=== PATIENT | male | born 1950 | race Caucasian/White ===

== ENCOUNTER 2017-09-12 08:13 | Day surgery (SDC) | payer MEDICARE, OTHER ==
[~2017-09-12] VITALS: Ht 180.3 cm; Wt 109.2 kg
[2017-09-12] VITALS (7 sets, daily range): BP systolic 104–142; BP diastolic 65–86; PULSE 80–101; RESP 16–20; TEMP 96.5–98.7; O2SAT 93–96
[2017-09-12] MEDS ORDERED: SODIUM CHLOR 0.9% 1000 ML IV SCH (09:00)
[2017-09-12] MEDS ORDERED: fentaNYL CITRATE 250 MCG/5 ML AMP ONE (09:52)
[2017-09-12] MEDS ORDERED: MIDAZOLAM HCL 2 MG/2 ML VIAL ONE (09:52)
--- NOTE | 2017-09-12 10:40 | PD.RAD ---
Post CT Procedure Prog Note Pre Procedure Diagnosis: (1) Liver masses Post Procedure Diagnosis: (1) Liver masses Procedure Date: Sep 12, 2017 Supervising Radiologist: Max Crespo Anesthesia: Local, Analgesia, Conscious Sedation Plan of Activity Patient to Unit: ROPU Patient Condition: Good See PACS Report for procedural detail/treatment Biopsy Imaging Guidance: CT Side: Right Biopsy Procedure: Liver Specimen: Core Biopsy (x 2) Max Crespo MD Sep 12, 2017 10:40
[2017-09-12] MEDS ORDERED: HYDROmorphone HCL 2 MG TAB PO PRN (10:45)
--- NOTE | 2017-09-12 11:57 | RADRPT ---
EXAM DATE/TIME: 09/12/2017 10:02 [facility] COMPARISON: No previous studies available for comparison. INDICATIONS : Liver mass. SEDATION TIME: 30 minutes BIOPSY SITE: Right MEDICATION(S): 1.) 2.5 mg midazolam (Versed) IV 2.) 125 mcg fentanyl (Sublimaze) IV DEVICE(S): 1.) 18 gauge Bard needle MEDICAL HISTORY : Hypertension. SURGICAL HISTORY : None. ENCOUNTER: Initial ACUITY: 1 day PAIN SCORE: 0/10 LOCATION: Right A total of two core specimen(s) were obtained and sent to the laboratory for pathologic evaluation. PROCEDURE: 1. CT guided liver biopsy. 2. Conscious sedation with continuous EKG and oximetry monitoring. 3. EKG and oximetry remained stable throughout the procedure. Prior to the procedure informed consent was obtained. Any appropriate prior imaging studies were rev iewed. Using automated exposure control and adjustment of the mA and/or kV according to patient size, radiat ion dose was kept as low as reasonably achievable to obtain optimal diagnostic quality images. DICOM format image data is available electronically for review and comparison. The site was prepped in a sterile fashion. Full sterile technique was used, including cap, mask, aime rile gloves and gown and a large sterile sheet. Hand hygiene and 2% chlorhexidine and/or betadine/al cohol prep was utilized per protocol for cutaneous antisepsis. The skin and subcutaneous tissues wer e infiltrated with local anesthetic solution. With CT guidance the previously identified target was localized. Biopsy was performed using the presc ribed needle as above. Adequate hemostasis was obtained with compression at the puncture site. Follow-up CT scan reveals no hemorrhage. The patient tolerated the procedure well and there were no complications. The patient was returned to the Radiology Outpatient Unit in stable condition. CONCLUSION: Uncomplicated CT guided biopsy. 2-18 gauge core biopsies were obtained. Max Crespo MD on September 12, 2017 at 11:54 Board Certified Radiologist. This report was verified electronically.
== END 2017-09-12 14:33 | disposition home or self-care (01) ==
LOC: HRAD 08:13 → HRIP 08:17 → HRAD 14:33
PROVIDERS: ATTEND Internal Medicine
DX: K76.9 Liver disease, unspecified (principal)
CPT/HCPCS: 47000; 77012; 88307; 88341; 88342; J2250; J3010; J7030

== ENCOUNTER 2017-10-10 06:20 | Day surgery (SDC) | payer MEDICARE, OTHER ==
[~2017-10-10] VITALS: Ht 180.3 cm; Wt 107.7 kg
[2017-10-10 06:42] VITALS: BP 128/81; PULSE 106; RESP 20; TEMP 98.5; O2SAT 94
[2017-10-10] MEDS ORDERED: OXYC1TAB63 PO (06:43)
[2017-10-10] MEDS ORDERED: ZOFR8TAB PO (06:43)
[2017-10-10] MEDS ORDERED: POVIDONE IODINE 5% (ANTISEPSIS KIT) 4 APPLICATIONS EACH NARE SCH (07:15)
[2017-10-10] MEDS ORDERED: VANCOMYCIN 1000 MG/NS 250 ML - implanted port/tunneled catheter IV SCH ×2 (07:15)
[2017-10-10] MEDS ORDERED: SODIUM CHLORIDE 0.9% 1000 ML IV SCH (07:15)
[2017-10-10] MEDS ORDERED: CHLORHEXIDINE GLUCONATE 2 % 1 PACK (2 CLOTHS) TOPICAL SCH (07:15)
[2017-10-10] MEDS ORDERED: ceFAZolin 2 GM PREMIX 50 ML - implanted port/tunneled catheter insertion IV SCH (07:15)
[2017-10-10 07:24] LABS: INTERNATIONAL NORMALIZED RATIO 1.1 RATIO; PROTHROMBIN TIME - PATIENT 10.7 SEC (9.8-11.6)
[2017-10-10] MEDS ORDERED: ceFAZolin 2 GM in NS 100 ML IV SCH (07:30)
[2017-10-10] MEDS ORDERED: MIDAZOLAM HCL 2 MG/2 ML VIAL ONE (07:57)
[2017-10-10] MEDS ORDERED: LIDOCAINE 1%/EPINEPHrine 1:100,000 SOLN 30 ML VIAL ONE (08:13)
[2017-10-10 09:10] VITALS: BP 125/92; PULSE 92; RESP 20; TEMP 99.5; O2SAT 92
--- NOTE | 2017-10-10 09:19 | PD.RAD ---
Post Procedure Progress Note Pre Procedure Diagnosis: (1) Liver masses Post Procedure Diagnosis: (1) Liver masses Procedure Date: Oct 10, 2017 Supervising Radiologist: Getachew Lopez JR Proceduralist/Assist: RT Michelle(R), RT Elvin(R) Anesthesia: Conscious Sedation Plan of Activity Patient to Unit: ROPU Patient Condition: Good See PACS Report for procedural detail/treatment Central Venous Access Device Procedure 1 Right Internal Jugular Infusaport Placement single lumen Jordanian: 8 Findings: Port in good position and functions well. OK to use. Plan F/U with IR or a physician in 10-14 days for a site check. Jr. John,Getachew Adames MD Oct 10, 2017 09:19
[2017-10-10 09:25] VITALS: BP 114/66; PULSE 91; RESP 20; O2SAT 94
[2017-10-10] MEDS ORDERED: SODIUM CHLORIDE 0.9% FLUSH 10 ML FLUSH IVF PRN (09:30)
--- NOTE | 2017-10-10 09:44 | RADRPT ---
EXAM DATE/TIME: 10/10/2017 08:09 [facility] COMPARISON: No previous studies available for comparison. 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 MEDICAL HISTORY : Liver mass, HTN, DVT, HLD, CAD, Colon polyps, Melanoma SURGICAL HISTORY : Liver mass biopsy, Hernia repair, Cardiac cath ENCOUNTER: Initial ACUITY: 1 month PAIN SCORE: 4/10 LOCATION: Low back FLUORO TIME: 0.3 minutes IMAGE SERIES: 1 SEDATION TIME: 30 minutes ACCESS: Right internal jugular vein SEDATION: 1.) 2.5 mg midazolam (Versed) IV 2.) 175 mcg fentanyl (Sublimaze) IV Prophylactic antibiotics were administered with appropriate pre-procedure timing. Vancomycin within 2 hours of procedure, Ancef (or alternative) within 1 hour of procedure. DEVICE: 1. 8 Upper Sorbian single lumen Angiodynamics Bioflo port PROCEDURE : 1. Continuous pulse oximetry and EKG monitoring. 2. Intravenous conscious sedation. 3. Ultrasound guidance for venous access. 4. Fluoroscopic guided implantable central venous port placement. The patient was placed supine. The neck was prepped in sterile fashion. Full sterile technique was u sed, including cap, mask, sterile gloves and gown, and a large sterile sheet. Hand hygiene and 2% ch lorhexidine Betadine was utilized per protocol for cutaneous antisepsis with appropriate dry time for site. Sterile gel and sterile probe cover were utilized for ultrasound guidance. The skin and sub cutaneous tissues were infiltrated with local anesthetic solution. Under direct ultrasound guidance, central venous access was accomplished in the targeted vessel. The ultrasound images depicting access guidance were stored and saved to PACS for permanent record. A s ubcutaneous pocket was created using blunt dissection. The port was introduced to the pocket. The c atheter tubing was fed through a subcutaneous tunnel to the venotomy site. The catheter tubing was c ut to a suitable length and then was introduced through a valved Peel-Away sheath and positioned with catheter tubing tip at the cavo-atrial junction level. The pocket incision was closed with subcutic ular Vicryl suture. Steri-Strips were applied. The port was flushed and locked with heparin solutio n per protocol. Sterile dressing was applied to the site. The patient tolerated the procedure well. Conscious sedation was performed with the prescribed dosages and duration as above in the presence of an independent trained radiology nurse to assist in the monitoring of the patient. EKG and oximetry remained stable throughout the procedure. The patient tolerated the procedure well and there were no complications. The patient was sent to post anesthesia recovery in stable condition. CONCLUSION: Uncomplicated ultrasound and fluoroscopic guided implanted central venous port catheter placement as described in detail above. An 8 Upper Sorbian Power port was placed. Getachew Lopez Jr., MD on October 10, 2017 at 9:41 Board Certified Radiologist. This report was verified electronically.
[2017-10-10 09:55] VITALS: BP 115/60; PULSE 92; RESP 20; O2SAT 93
[2017-10-10 10:25] VITALS: BP 116/75; PULSE 101; RESP 20; O2SAT 94
== END 2017-10-10 11:08 | disposition home or self-care (01) ==
LOC: HROP 06:20 → HRIP 06:23 → HROP 11:08
PROVIDERS: ATTEND Internal Medicine Hematology
DX: C78.7 Secondary malignant neoplasm of liver and intrahepatic bile duct (principal); C80.1 Malignant (primary) neoplasm, unspecified; I10 Essential (primary) hypertension; I82.509 Chronic embolism and thrombosis of unspecified deep veins of unspecified lower extremity; E78.5 Hyperlipidemia, unspecified; I25.10 Atherosclerotic heart disease of native coronary artery without angina pectoris; Z86.010 Personal history of colon polyps; Z85.820 Personal history of malignant melanoma of skin; Z01.818 Encounter for other preprocedural examination; Z87.891 Personal history of nicotine dependence
CPT/HCPCS: 36561; 76937; 77001; 85610; 85730; 99152; 99153; C1788; J0690; J1642; J2250; J3010; J3370; J7030; J7050